=== PATIENT | female | born 1945 | race Caucasian/White ===

== ENCOUNTER 2016-08-13 07:13 | Day surgery (SDC) | payer MEDICARE, MEDICAID ==
[2016-08-13] MEDS ORDERED: Povidone-Iodine 10% Oint 28.4 GM Tube ONE (07:19)
[2016-08-13] MEDS ORDERED: EPINEPHrine 1:1000 1 MG/ML SDV ONE (07:19)
[2016-08-13] MEDS ORDERED: Bupivacaine 0.5%/EPINEPHrine 1:200,000 50 ML MDV ONE (07:20)
[2016-08-13] MEDS ORDERED: Povidone-Iodine 10% Soln 118.25 ML Bottle ONE (07:21)
[2016-08-13] MEDS ORDERED: Lactated Ringers 1,000 ML IV SCH (08:00)
[2016-08-13] MEDS ORDERED: fentaNYL 250 MCG/5 ML SDV ONE (08:31)
[2016-08-13] MEDS ORDERED: Succinylcholine/Normal Saline 200 MG/10 ML Syringe ONE (08:31)
[2016-08-13] MEDS ORDERED: Rocuronium 50 MG/5 ML Vial ONE (08:31)
[2016-08-13] MEDS ORDERED: Propofol 200 MG/20 ML SDV ONE (08:31)
[2016-08-13] MEDS ORDERED: Dexamethasone 4 MG/ML SDV ONE (08:31)
[2016-08-13] MEDS ORDERED: Neostigmine Methylsulfate 1 MG/ML 5 ML Syringe ONE (08:31)
[2016-08-13] MEDS ORDERED: Ondansetron 4 MG/2 ML SDV ONE (08:31)
[2016-08-13] MEDS ORDERED: Bupivacaine 0.5% 30 ML SDV ONE (08:33)
[2016-08-13] MEDS ORDERED: Ketorolac 60 MG/2 ML SDV ONE (08:46)
[2016-08-13] MEDS ORDERED: ceFAZolin 2 GM in Sodium Chloride 0.9% 50 ML IV ONE (09:30)
[2016-08-13] MEDS ORDERED: ceFAZolin 2 GM in Premix Bag 1 BAG IV ONE (09:30)
[2016-08-13] MEDS ORDERED: ePHEDrine 50 MG/ML SDV ONE (11:20)
[2016-08-13 14:26] VITALS: BP 109/71
--- NOTE | 2016-08-13 18:15 | OR ---
DATE OF PROCEDURE: 08/13/2016 PREOPERATIVE DIAGNOSIS: Left rotator cuff tear. POSTOPERATIVE DIAGNOSIS: Left rotator cuff tear. PROCEDURE: Left shoulder arthroscopy with subacromial decompression and mini open rotator cuff repair. ANESTHESIA: Laryngeal mask airway, general endotracheal intubation. FLUID: Lactated Ringer solution. ESTIMATED BLOOD LOSS: Less than 25 mils. COMPLICATIONS: None. SPECIMEN: None. DISCHARGE DISPOSITION: Stable to PACU. INSTRUMENTATION: [place]. HISTORY AND INDICATIONS FOR THE PROCEDURE: The patient is seen preoperatively two weeks ago in the clinic. She had had a recent history of feeling a snap in her shoulder. Preoperative imaging confirmed the above-mentioned diagnosis. Risks and benefits of the procedure were explained to the patient. Informed consent was obtained. DETAILS OF PROCEDURE: The patient was seen preoperatively by myself and the anesthesia staff in the preop holding area, where the operative site was marked. She was brought to the operative suite by the Anesthesia Staff where an interscalene block was administered as well as general endotracheal intubation. She was placed into a beach chair position. All extremities found to be well padded. Left upper extremity was then prepped and draped in a sterile manner. Time-out was called identifying the correct patient, correct site, correct procedure, correct site, and antibiotics had been with appropriate period of time. The posterior portal was then made and the joint was explored. Biceps tendon was intact as well as the middle glenohumeral ligament. In subscapularis tendon, the articular surface did not have a great deal chondromalacia. I then entered the subacromial space and then used a shaver through the lateral portal to clear any bursa and then used a cautery burner to remove any soft tissue on acromial process. I then used a gelacio and removed the inferior aspect of the acromial hook and then removed my instruments. I then closed the portals with 3-0 Vicryl. I then re-prepped with Betadine solution and then made an incision at the anterior corner of the acromion and identified the raphe between the anterior and medial portion. I then divided the deltoid up to its insertion on the acromion and was left remaining incision less than 4 cm to the acromion. I then identified the rotator cuff tear. There was a longitudinal tear. I did use a #2 FiberWire to do marginal convergence stitch after this had been accomplished. I then placed my medial row and then ran medial row of anchors and then reamed the FiberTape through the rotator cuff posteriorly and anteriorly. I then made my lateral row of anchors and my anchors were set in place with the FiberWire as well as the FiberTape. I then irrigated copiously with saline and then closed the deltoid fascia with 2-0 Vicryl and then closed the subcuticular tissues with 2-0 Vicryl and 2-0 Monocryl, followed by Dermabond followed by a Betadine soaked Adaptic, followed by sterile dressing. The patient was then placed into abduction pillow, led to awaken from general anesthesia, and taken to the PACU in stable condition. Stanley Kim DO /[id number]
== END 2016-08-13 15:14 | disposition home or self-care (01) ==
LOC: JP.SDS 07:13
PROVIDERS: ATTEND Orthopaedic Surgery
DX: M75.102 Unspecified rotator cuff tear or rupture of left shoulder, not specified as traumatic (principal); I10 Essential (primary) hypertension; K21.9 Gastro-esophageal reflux disease without esophagitis; G47.33 Obstructive sleep apnea (adult) (pediatric); E78.00 Pure hypercholesterolemia, unspecified; Z79.82 Long term (current) use of aspirin; Z79.899 Other long term (current) drug therapy; Z98.890 Other specified postprocedural states; Z91.040 Latex allergy status; Z91.018 Allergy to other foods; F32.9 Major depressive disorder, single episode, unspecified; G45.9 Transient cerebral ischemic attack, unspecified
CPT/HCPCS: 23412; 29822; C1713; J0171; J0690; J1100; J2405; J2704; J3010; J7050; J7120; 23410; A9270-GY; J1885

== ENCOUNTER 2016-12-26 11:37 | Emergency (ER) | payer MEDICARE, MEDICAID ==
[2016-12-26 12:09] VITALS: BP 117/74
--- NOTE | 2016-12-26 12:43 | EDM.PDOC ---
ED HPI GENERAL MEDICAL PROBLEM - General Chief Complaint: Respiratory Problem Stated Complaint: WEAK/NAUSEA Time Seen by Provider: 12/26/16 12:20 Source of Information: Reports: Patient History Limitations: Reports: No Limitations - History of Present Illness INITIAL COMMENTS - FREE TEXT/NARRATIVE: 71-year-old female with a cough and cold symptoms for the last 48 hours. She's developed a headache as well, no fever or chills, no shortness of breath but the cough is worsening. She just feels awful, malaise, generalized body aches but no nausea or vomiting, denies chest pain, denies sputum production. Her nose is running in her throat is scratchy Onset: Gradual Severity: Mild (Over the past 48 hours) Associated Symptoms: Reports: Cough, Headaches, Malaise. Denies: Chest Pain, Fever/Chills, Loss of Appetite, Nausea/Vomiting, Shortness of Breath - Related Data Allergies Allergy/AdvReac Type Severity Reaction Status Date / Time tomato [Tomato] Allergy Mild Rash Verified 08/13/16 07:35 latex Allergy Cannot Verified 08/13/16 07:35 Remember Home Meds: Home Meds Cyanocobalamin (Vitamin B-12) [Vitamin B-12] 1,000 mcg PO DAILY 03/05/13 [ History] Metoprolol Tartrate [Lopressor] 25 mg PO BID 03/05/13 [History] Multivitamin [Multi-Vitamin Daily] 1 each PO DAILY 03/05/13 [History] atorvaSTATin [Lipitor] 20 mg PO BEDTIME 03/05/13 [History] Omeprazole [Prilosec] 20 mg PO BEDTIME 02/21/14 [History] Aspirin [Ecotrin] 1 tab PO DAILY 10/21/16 [History] Past Medical History HEENT History: Reports: Cataract, Impaired Vision Cardiovascular History: Reports: Afib, Arrhythmia, High Cholesterol, Hypertension Respiratory History: Reports: Sleep Apnea Gastrointestinal History: Reports: GERD Genitourinary History: Reports: None JAVA SOFTWARE History: Reports: Dysfunctional Uterine Bleeding, Musculoskeletal History: Reports: Arthritis, Back Pain, Chronic, Neck Pain, Chronic Other Musculoskeletal History: - Psychiatric History: Reports: Depression Other Dermatologic History: froze mole off right upper cheek- - Infectious Disease History Infectious Disease History: Reports: Measles - Past Surgical History Cardiovascular Surgical History: Reports: Other (See Below) Other Cardiovascular Surgeries/Procedures: angiogram GI Surgical History: Reports: Colonoscopy Female Surgical History: Reports: Hysterectomy, Tubal Ligation Other Musculoskeletal Surgeries/Procedures:: right ankle pins/screws Dermatological Surgical History: Reports: None Social & Family History - Tobacco Use Smoking Status *Q: Never Smoker Second Hand Smoke Exposure: No - Caffeine Use Caffeine Use: Reports: Coffee - Alcohol Use Days Per Week of Alcohol Use: 0 - Recreational Drug Use Recreational Drug Use: No ED ROS GENERAL - Review of Systems Review Of Systems: See Below Constitutional: Reports: Malaise. Denies: Fever, Chills HEENT: Reports: Rhinitis, Throat Pain Respiratory: Reports: Cough. Denies: Shortness of Breath, Sputum Cardiovascular: Denies: Chest Pain GI/Abdominal: Denies: Abdominal Pain, Nausea, Vomiting Skin: Reports: No Symptoms Neurological: Reports: Headache Psychiatric: Reports: No Symptoms ED EXAM, GENERAL - Physical Exam Exam: See Below Free Text/Narrative:: O2 saturations 95% on room air, respiratory rate normal, blood pressure normal, patient is afebrile Exam Limited By: No Limitations General Appearance: Alert, No Apparent Distress Throat/Mouth: Normal Inspection Respiratory/Chest: No Respiratory Distress, Wheezing (A few scattered expiratory wheezes are heard, and a few rales with her cough but overall good air movement) Cardiovascular: Regular Rate, Rhythm Extremities: Normal Inspection. No: Pedal Edema Neurological: Alert, Oriented Psychiatric: Normal Affect, Normal Mood Skin Exam: Warm, Dry Course - Vital Signs Last Recorded V/S: Last Vital Signs Temp 97.5 F 12/26/16 12:06 Pulse 73 12/26/16 12:06 Resp 24 H 12/26/16 12:06 BP 117/74 12/26/16 12:06 Pulse Ox 94 L 12/26/16 12:06 - Re-Assessments/Exams Free Text/Narrative Re-Assessment/Exam: 12/26/16 12:47 Patient did have some fairly significant prolonged coughing spells while I was visiting with her. She'll be treated with benzonatate Perles for cough suppression as well as 40 mg of prednisone daily for up to 5 days. I explained to her this is viral and will have to run its course but we can help her with symptoms. If she worsens she can return any time, or consider recheck in 4-6 days if not improving satisfactorily. Departure - Departure Time of Disposition: 13:11 Disposition: Home, Self-Care 01 Condition: Good Clinical Impression: Viral URI with cough - Discharge Information Instructions: Acute Bronchitis Referrals: Jhonatan Chandra MD [Primary Care Provider] - Forms: ED Department Discharge Care Plan Goals: Use cough medicine as prescribed, and take 4 pills of prednisone with your first meal daily for the next 2-5 days. You may stop the prednisone when you are feeling improved. Return anytime if worsening despite the medication.
== END 2016-12-26 13:11 | disposition home or self-care (01) ==
LOC: JP.ED 11:37
DX: J06.9 Acute upper respiratory infection, unspecified (principal); I48.91 Unspecified atrial fibrillation; E78.00 Pure hypercholesterolemia, unspecified; I10 Essential (primary) hypertension; K21.9 Gastro-esophageal reflux disease without esophagitis; Z90.710 Acquired absence of both cervix and uterus; Z91.040 Latex allergy status; Z79.899 Other long term (current) drug therapy; Z98.51 Tubal ligation status
CPT/HCPCS: 99282; 99283

== ENCOUNTER 2017-06-09 19:18 | Emergency (ER) | payer MEDICARE, MEDICAID ==
[2017-06-09] MEDS ORDERED: Diltiazem 25 MG/5 ML SDV IVPUSH ONE (19:23)
--- NOTE | 2017-06-09 19:32 | EDM.PDOC ---
ED HPI GENERAL MEDICAL PROBLEM - General Chief Complaint: Chest Pain Stated Complaint: HEART ISSUES Time Seen by Provider: 06/09/17 19:20 Source of Information: Reports: Patient History Limitations: Reports: No Limitations - History of Present Illness INITIAL COMMENTS - FREE TEXT/NARRATIVE: 71-year-old female who has a problem with chronic recurring atrial fibrillation many times develop symptoms but it resolved spontaneously if she just relaxes. Tonight she developed sudden atrial fibrillation around an hour and a half ago, it was bothering her more than usual and not going away so she came in. She has no shortness of breath but she has pressure in her upper chest into her jaw which she always gets when she gets atrial fibrillation without control. Her rate is as high as 160. Her legs also feel weak. No fever, denies dyspnea. Onset: Sudden (An hour and a half ago) Severity: Moderate Associated Symptoms: Reports: Chest Pain, Other (Neck pain, arm pain and leg weakness) Chest Pain Score (Numeric/FACES): 8 - Related Data Allergies Allergy/AdvReac Type Severity Reaction Status Date / Time tomato [Tomato] Allergy Mild Rash Verified 06/09/17 19:24 latex Allergy Cannot Verified 06/09/17 19:24 Remember Home Meds: Home Meds Cyanocobalamin (Vitamin B-12) [Vitamin B-12] 1,000 mcg PO DAILY 03/05/13 [ History] Metoprolol Tartrate [Lopressor] 25 mg PO BID 03/05/13 [History] Multivitamin [Multi-Vitamin Daily] 1 each PO DAILY 03/05/13 [History] atorvaSTATin [Lipitor] 20 mg PO BEDTIME 03/05/13 [History] Omeprazole [Prilosec] 20 mg PO BEDTIME 02/21/14 [History] Aspirin [Ecotrin] 1 tab PO DAILY 10/21/16 [History] Past Medical History HEENT History: Reports: Cataract, Impaired Vision Cardiovascular History: Reports: Afib, Arrhythmia, High Cholesterol, Hypertension Respiratory History: Reports: Sleep Apnea Gastrointestinal History: Reports: GERD Genitourinary History: Reports: None [employer]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: Dysfunctional Uterine Bleeding, Musculoskeletal History: Reports: Arthritis, Back Pain, Chronic, Neck Pain, Chronic Other Musculoskeletal History: - Psychiatric History: Reports: Depression Other Dermatologic History: froze mole off right upper cheek- - Infectious Disease History Infectious Disease History: Reports: Measles - Past Surgical History Cardiovascular Surgical History: Reports: Other (See Below) Other Cardiovascular Surgeries/Procedures: angiogram GI Surgical History: Reports: Colonoscopy Female Surgical History: Reports: Hysterectomy, Tubal Ligation Other Musculoskeletal Surgeries/Procedures:: right ankle pins/screws Dermatological Surgical History: Reports: None Social & Family History - Tobacco Use Smoking Status *Q: Never Smoker Second Hand Smoke Exposure: No - Caffeine Use Caffeine Use: Reports: Coffee - Alcohol Use Days Per Week of Alcohol Use: 0 - Recreational Drug Use Recreational Drug Use: No ED ROS GENERAL - Review of Systems Review Of Systems: See Below Constitutional: Reports: Malaise. Denies: Fever, Chills HEENT: Reports: Throat Pain Respiratory: Denies: Shortness of Breath Cardiovascular: Reports: Chest Pain, Palpitations GI/Abdominal: Denies: Abdominal Pain, Nausea, Vomiting : Reports: No Symptoms Neurological: Reports: No Symptoms Psychiatric: Reports: No Symptoms ED EXAM, GENERAL - Physical Exam Exam: See Below Exam Limited By: No Limitations General Appearance: Alert, No Apparent Distress, Anxious Eye Exam: Bilateral Eye: Normal Inspection Head: Atraumatic Respiratory/Chest: No Respiratory Distress, Lungs Clear Cardiovascular: Tachycardia, Irregularly Irregular GI/Abdominal: Normal Bowel Sounds, Soft Extremities: Normal Inspection. No: Pedal Edema Neurological: Alert, Oriented Course - Vital Signs Last Recorded V/S: Last Vital Signs Temp 97.5 F 06/09/17 19:47 Pulse 114 H 06/09/17 22:51 Resp 17 06/09/17 21:31 BP 98/66 06/09/17 22:51 Pulse Ox 96 06/09/17 22:51 - Orders/Labs/Meds Orders: Active Orders 24 hr Category Date Time Status EKG Documentation Completion [RC] ASDIRECTED Care 06/09/17 19:24 Active Saline Lock Insert [OM.PC] Routine Oth 06/09/17 19:42 Ordered EKG 12 Lead [EK] Routine Ther 06/09/17 19:23 Ordered Labs: Laboratory Tests 06/09/17 06/09/17 Range/Units 19:34 19:34 WBC 12.1 H (4.5-11.0) K/uL RBC 4.61 (3.30-5.50) M/uL Hgb 13.2 (12.0-15.0) g/dL Hct 41.2 (36.0-48.0) % MCV 89 (80-98) fL MCH 29 (27-31) pg MCHC 32 (32-36) % Plt Count 178 (150-400) K/uL Neut % (Auto) 63 (36-66) % Lymph % (Auto) 28 (24-44) % [place] % (Auto) 8 H (2-6) % Eos % (Auto) 1 L (2-4) % Baso % (Auto) 0 (0-1) % Sodium 145 (140-148) mmol/L Potassium 3.7 (3.6-5.2) mmol/L Chloride 106 (100-108) mmol/L Carbon Dioxide 28 (21-32) mmol/L Anion Gap 11.1 (5.0-14.0) mmol/L BUN 16 (7-18) mg/dL Creatinine 1.0 (0.6-1.0) mg/dL Est Cr Clr Drug Dosing TNP Estimated GFR (MDRD) 55 L (>60) Glucose 133 H (74-106) mg/dL Calcium 8.3 L (8.5-10.1) mg/dL Total Bilirubin 0.3 (0.2-1.0) mg/dL AST 24 (15-37) U/L ALT 32 (12-78) U/L Alkaline Phosphatase 75 (46-116) U/L Troponin I < 0.017 (0.000-0.056) ng/mL Total Protein 6.8 (6.4-8.2) g/dL Albumin 3.5 (3.4-5.0) g/dL Globulin 3.3 (2.3-3.5) g/dL Albumin/Globulin Ratio 1.1 L (1.2-2.2) Meds: Medications Discontinued Medications Generic Name Dose Route Start Last Admin Trade Name Freq PRN Reason Stop Dose Admin Diltiazem HCl 20 mg 06/09/17 19:23 06/09/17 19:29 Diltiazem IVPUSH 06/09/17 19:24 20 mg ONETIME ONE Administration Metoprolol Tartrate 25 mg 06/09/17 19:47 06/09/17 19:57 Lopressor PO 06/09/17 19:48 25 mg ONETIME ONE Administration Propofol Confirm 06/09/17 22:26 Diprivan 20 Ml Administered 06/09/17 22:27 Dose 200 mg .ROUTE .STK-MED ONE Sodium Chloride 10 ml 06/09/17 19:42 06/09/17 19:48 Saline Flush FLUSH 10 ml ASDIRECTED PRN Administration Keep Vein Open - Re-Assessments/Exams Free Text/Narrative Re-Assessment/Exam: 06/09/17 19:31 An IV was started and we will be controlled with Cardizem IV starting at 20 mg. CBC, CMP, troponin were obtained, and if she does not convert in the next couple hours and if labs are reassuring electrical cardioversion will be attempted. 06/09/17 20:09 White count is 12,000, troponin 0, electrolytes normal very reassuring. The Cardizem had a great rate control affect slowing her rate into the 70s and 80s, and there were even some small bursts of normal sinus rhythm but she is still in atrial fibrillation at this time. 06/09/17 22:40 Patient continued to display atrial fibrillation although the rate was better controlled she would not convert. She was then sedated with propofol, and elective synchronized cardioversion was attempted. A 200 J effort as well as two 300 J efforts were done with only minimal response initially and then reconversion to atrial fibrillation and flutter. I believe this patient needs admission for rate control and discussion of whether medication changes are necessary. We have no inpatient beds but fortunately the hospitalist service at [facility] was kind enough to accept the patient and she can get a cardiology consultation up there as well. Departure - Departure Time of Disposition: 23:17 Disposition: DC/Tfer to Other Reason for Transfer *Q: Other Condition: Fair Clinical Impression: Atrial fibrillation with rapid ventricular response Instructions: Atrial Fibrillation, [id number] Referrals: PCP,None [Primary Care Provider] - Forms: ED Department Discharge Care Plan Goals: Patient is to be transferred to [facility] for inpatient monitoring of atrial fibrillation along with cardiology consultation. - My Orders Last 24 Hours: My Active Orders 06/09/17 19:23 EKG 12 Lead [EK] Routine 06/09/17 19:24 EKG Documentation Completion [RC] ASDIRECTED 06/09/17 19:42 Saline Lock Insert [OM.PC] Routine - Assessment/Plan Last 24 Hours: My Active Orders 06/09/17 19:23 EKG 12 Lead [EK] Routine 06/09/17 19:24 EKG Documentation Completion [RC] ASDIRECTED 06/09/17 19:42 Saline Lock Insert [OM.PC] Routine
[2017-06-09] MEDS ORDERED: Sodium Chloride 0.9% 10 ML Syringe FLUSH PRN (19:42)
[2017-06-09] MEDS ORDERED: Metoprolol Tartrate 25 MG Tab PO ONE (19:47)
[2017-06-09] MEDS ORDERED: Propofol 200 MG/20 ML SDV ONE (22:26)
[2017-06-09 22:51] VITALS: BP 98/66
== END 2017-06-09 23:17 | disposition other institution (70) ==
LOC: JP.ED 19:18
DX: I48.91 Unspecified atrial fibrillation (principal); E78.00 Pure hypercholesterolemia, unspecified; I10 Essential (primary) hypertension; K21.9 Gastro-esophageal reflux disease without esophagitis; Z91.018 Allergy to other foods; Z91.040 Latex allergy status; Z79.899 Other long term (current) drug therapy
CPT/HCPCS: 36415; 80053; 84484; 85025; 92960; 93005; 96374; 99285; A9270; J2704; J3490; J7050

== ENCOUNTER 2017-07-16 06:35 | Day surgery (SDC) | payer MEDICARE, MEDICAID ==
[2017-07-16] MEDS ORDERED: Lactated Ringers 1,000 ML IV SCH (07:00)
[2017-07-16] MEDS ORDERED: Propofol 200 MG/20 ML SDV ONE (08:12)
[2017-07-16] MEDS ORDERED: fentaNYL 100 MCG/2 ML SDV ONE (08:12)
[2017-07-16] MEDS ORDERED: Midazolam 1 MG/ML 2 ML SDV ONE (08:13)
[2017-07-16 10:11] VITALS: BP 123/75
--- NOTE | 2017-07-16 14:35 | OR ---
DATE OF PROCEDURE: 07/16/2017 PREOPERATIVE DIAGNOSIS: Blood in stool. POSTOPERATIVE DIAGNOSES: 1. Blood in stool, etiology unknown. 2. Antral inflammation consistent with gastritis. 3. Diverticulosis. 4. Small rectal polyp. PROCEDURE: Esophagogastroduodenoscopy with antral biopsies for CLOtest and for pathology to look for Helicobacter pylori. Colonoscopy to the cecum with biopsy, resection of rectal polyp. SURGEON: Rajeev Stark MD. ANESTHESIA: IV anesthesia with monitored anesthesia care. INDICATION: This 71-year-old white female is referred for upper and lower endoscopy because of blood in her stool. I counseled her before the procedure including risks and alternatives, and she gave her informed consent to proceed. She said she has had both upper and lower endoscopies in the past, both about 8 or 9 years ago. DESCRIPTION OF PROCEDURE: The patient was placed in the left lateral decubitus position. IV anesthesia was administered by the Anesthesia Service. A time-out was held. The flexible video Olympus upper endoscope was passed through her mouth, down her esophagus, and into her stomach. The scope was easily passed through the pylorus into the duodenal region and its third portion. The scope was then slowly withdrawn, examining the mucosa throughout. The duodenal mucosa appeared unremarkable. The scope was brought up through the pylorus. There was some fairly intense erythema in the antrum consistent with gastritis. The scope was retroflexed. The proximal stomach appeared unremarkable. The scope was straightened. We obtained antral biopsies for CLOtest and for pathology to look for Helicobacter pylori. The scope was then brought up through the GE junction which appeared unremarkable and then up through the unremarkable appearing esophagus and was removed. We saw no evidence of any old or new blood nor anything that we would expect to bleed in the upper gastrointestinal area. Next, a rectal exam was performed, which was unremarkable. The flexible video Olympus colonoscope was introduced through her anus, up her rectum, and out her colon all way to the cecum. We saw a few left-sided diverticula. There was no bleeding or inflammation associated with any of them. Once the cecum was reached, the scope was slowly withdrawn, examining the mucosa throughout. No additional mucosal abnormalities were noted until we reached the rectum. Here, we saw a small polyp, which was removed with a couple of bites of biopsy forceps. The scope was retroflexed with the distal rectum appearing unremarkable. The scope was straightened and removed. She tolerated the procedure well. Rajeev Stark MD /[id number]
== END 2017-07-16 10:30 | disposition home or self-care (01) ==
LOC: JP.SDS 06:35
PROVIDERS: ATTEND Surgery
DX: K92.1 Melena (principal); K57.30 Diverticulosis of large intestine without perforation or abscess without bleeding; K63.5 Polyp of colon; K21.9 Gastro-esophageal reflux disease without esophagitis; Z91.040 Latex allergy status; Z91.018 Allergy to other foods
CPT/HCPCS: 43239; 45380; 87081; 88305; J2250; J2704; J3010; J7120

== ENCOUNTER 2017-08-14 07:10 | Day surgery (SDC) | payer MEDICARE, MEDICAID ==
[2017-08-14] MEDS ORDERED: Sodium Chloride 0.9% 10 ML Syringe FLUSH PRN (08:00)
[2017-08-14 09:16] VITALS: BP 113/54
--- NOTE | 2017-08-14 09:59 | OR ---
DATE OF PROCEDURE: 08/14/2017 POSTOPERATIVE CARE: Postoperative care will be provided mainly at the [address] [place] [address] [facility] in conjunction with [facility]. PREOPERATIVE DIAGNOSES: 1. Cataract, left eye. 2. Adherent posterior subcapsular cataract. PREOPERATIVE DIAGNOSIS: Cataract, left eye. PROCEDURE: 1. Cataract extraction, Phacoemulsification with intraocular lens placement, left eye. 2. Polishing of the posterior capsule with a Cholo Squeegee. ANESTHESIA: Topical and intracameral. ESTIMATED BLOOD LOSS: Minimal. COMPLICATIONS: None. PATHOLOGY SPECIMENS: None. SURGICAL FINDINGS: None. INDICATION FOR PROCEDURE: The patient is a 71-year-old female with history of a visually significant cataract in the left eye, which interfered with activities of daily living. This consisted of a nuclear sclerosis cataract. Following careful discussion of the risks, benefits and alternatives to cataract extraction with intraocular lens placement including blindness and , the patient elected to proceed, and informed, written consent was obtained prior to the procedure. DESCRIPTION OF THE PROCEDURE: The patient was previously identified, and a helio placed above the left eye. All sources, including the patient, indicated that the left eye was the correct eye. The patient was subsequently taken to the operating room where standard monitors were applied. The patient was then prepped and draped in the usual sterile fashion for ophthalmic surgery. Attention was first directed at the 12 o'clock position where a paracentesis port was fashioned. Shugar solution followed by Viscoat was instilled into the eye. Attention was then directed to the 8:30 position where a triplanar incision was made in a near-clear manner using a keratome. A continuous capsulorrhexis was then made using a combination of the cystotome and Utrata forceps. Hydrodissection was achieved using a balanced salt solution, and the lens rotated nicely. Phacoemulsification was then done using a modified [id number] technique without complication. Phaco time was 9.19 CDE. The remaining cortex was removed using the irrigation/aspiration handpiece. After removal of the cortex with irrigation and aspiration, the posterior capsule was gently polished using a Cholo Squeegee. Provisc was then instilled into the eye. A Technis lens, model [id number], at 19.5 diopters was then placed in the capsular bag using an [place] injector. The remaining viscoelastic was removed using the irrigation/aspiration forceps. All wounds were then checked and found to be watertight. The lid speculum and drapes were removed. Maxitrol ointment was placed in the patient's left eye, and the eye was shielded. The patient tolerated the procedure well. The patient was instructed to follow up tomorrow. All needle and sponge counts were correct at the end of the procedure. Mimi Brush MD /[id number]
== END 2017-08-14 09:55 | disposition home or self-care (01) ==
LOC: JP.SDS 07:10
PROVIDERS: ATTEND Ophthalmology
DX: H25.12 Age-related nuclear cataract, left eye (principal); K21.9 Gastro-esophageal reflux disease without esophagitis; Z91.040 Latex allergy status
CPT/HCPCS: 66984; J7050

== ENCOUNTER 2019-01-19 17:13 | Observation (INO) | payer MEDICARE, MEDICAID ==
[2019-01-19] MEDS ORDERED: Sodium Chloride 0.9% 10 ML Syringe FLUSH PRN (17:40)
[2019-01-19] MEDS ORDERED: Acetaminophen 325 MG Tab PO PRN (17:40)
[2019-01-19] MEDS ORDERED: Albuterol 0.083% 2.5 MG/3 ML Neb Soln NEB PRN (17:40)
[2019-01-19] MEDS ORDERED: Ondansetron 4 MG/2 ML SDV IV PRN (17:40)
[2019-01-19] MEDS ORDERED: Polyethylene Glycol 3350 Powder 17 GM Packet PO PRN (17:40)
[2019-01-19] MEDS ORDERED: oxyCODONE 5 MG Tab PO PRN (17:40)
--- NOTE | 2019-01-19 18:44 | PCM.HP.2 ---
H&P History of Present Illness - General Date of Service: 01/19/19 Admit Problem/Dx: Admission Diagnosis/Problem Admission Diagnosis/Problem Hypoxia Source of Information: Patient, Provider, RN Notes Reviewed History Limitations: Reports: No Limitations - History of Present Illness Initial Comments - Free Text/Narative: Ms. Kimball is a 73-year-old woman who was admitted as a direct admission from the clinic for further evaluation and management of hypoxia. She has a known history of COPD and reports that she was noted to be hypoxic with exertion on her last visit pulmonary medicine in August of this year. She does use some inhalers on a daily basis. She experienced a coughing episode last night and developed immediate onset of pain in her right lateral posterior chest wall. Pain is fairly severe and hurts with breathing. Because of the pain she was seen and evaluated in the clinic. On initial assessment and reassessment was found to be hypoxic on room air with saturations in the upper 80s. Vital signs were otherwise stable and she was afebrile. CT scan of the chest with PE protocol was obtained and shows no evidence of pulmonary emboli, significant infiltrate, or congestive heart failure. She was found to have bilateral atelectasis at the bases. - Related Data Allergies/Adverse Reactions: Allergies Allergy/AdvReac Type Severity Reaction Status Date / Time tomato [Tomato] Allergy Mild Rash Verified 10/16/17 06:59 latex Allergy Rash Verified 10/16/17 06:59 Home Medications: Home Meds Cyanocobalamin (Vitamin B-12) [Vitamin B-12] 1,000 mcg PO DAILY 03/05/13 [ History] Metoprolol Tartrate [Lopressor] 12.5 mg PO BID 03/05/13 [History] Multivitamin [Multi-Vitamin Daily] 1 tab PO DAILY 03/05/13 [History] atorvaSTATin [Lipitor] 20 mg PO DAILY 03/05/13 [History] Omeprazole [Prilosec] 20 mg PO ACBREAKFAST 02/21/14 [History] Aspirin [Children's Aspirin] 81 mg PO DAILY 07/14/17 [History] Flecainide [Tambocor] 100 mg PO BID 07/14/17 [History] Moxifloxacin [Vigamox 0.5% Ophth Soln] 1 drop EYELF QID 08/07/17 [History] prednisoLONE acetate [Pred Forte 1% Ophth Susp] 1 drop EYELF QID 08/07/17 [ History] Albuterol [Ventolin HFA] 01/19/19 [History] Cholecalciferol (Vitamin D3) [Vitamin D3] 1,000 unit PO DAILY 01/19/19 [History] Citalopram [Citalopram HBr] 20 mg PO DAILY 01/19/19 [History] Temazepam [Restoril] 7.5 mg PO BEDTIME 01/19/19 [History] Past Medical History HEENT History: Reports: Cataract, Impaired Vision Cardiovascular History: Reports: Afib, Arrhythmia, High Cholesterol, Hypertension Respiratory History: Reports: Sleep Apnea Gastrointestinal History: Reports: Colon Polyp, GERD, GI Bleed Genitourinary History: Reports: None SPECIAL EFFECTS ARTIST History: Reports: Dysfunctional Uterine Bleeding, Musculoskeletal History: Reports: Back Pain, Chronic, Neck Pain, Chronic, Osteoarthritis Other Musculoskeletal History: - Neurological History: Reports: Other (See Below) Other 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19 Psychiatric History: Reports: Depression Hematologic History: Reports: B12 Deficiency Dermatologic History: Reports: Other (See Below) Other Dermatologic History: froze mole off right upper cheek- - Infectious Disease History Infectious Disease History: Reports: Chicken Pox, Measles - Past Surgical History HEENT Surgical History: Reports: Cataract Surgery Cardiovascular Surgical History: Reports: Other (See Below) Other Cardiovascular Surgeries/Procedures: angiogram Respiratory Surgical History: Reports: None GI Surgical History: Reports: Colonoscopy, EGD Female Surgical History: Reports: Hysterectomy, Salpingo-Oophorectomy, Tubal Ligation Neurological Surgical History: Reports: None Musculoskeletal Surgical History: Reports: Shoulder Surgery Other Musculoskeletal Surgeries/Procedures:: right ankle pins/screws Dermatological Surgical History: Reports: None Social & Family History - Family History Family Medical History: Noncontributory - Tobacco Use Smoking Status *Q: Former Smoker Used Tobacco, but Quit: Yes Month/Year Tobacco Last Used: 1964 - Caffeine Use Caffeine Use: Reports: Coffee, Soda - Recreational Drug Use Recreational Drug Use: No H&P Review of Systems - Review of Systems: Review Of Systems: See Below General: Reports: No Symptoms HEENT: Reports: No Symptoms Pulmonary: Reports: Shortness of Breath, Other (Chest wall pain). Denies: Wheezing, Pleuritic Chest Pain, Cough, Sputum, Hemoptysis Cardiovascular: Reports: Dyspnea on Exertion. Denies: Chest Pain, Palpitations , Orthopnea, PND, Edema, Lightheadedness Gastrointestinal: Reports: No Symptoms Genitourinary: Reports: No Symptoms Musculoskeletal: Reports: No Symptoms Skin: Reports: No Symptoms Psychiatric: Reports: No Symptoms Neurological: Reports: No Symptoms Hematologic/Lymphatic: Reports: No Symptoms Immunologic: Reports: No Symptoms Exam - Exam Exam: See Below - Vital Signs Vital Signs: Last Vital Signs Temp 95.7 F 01/19/19 17:25 Pulse 60 01/19/19 17:25 Resp 16 01/19/19 17:25 BP 147/50 H 01/19/19 17:25 Pulse Ox 95 01/19/19 17:25 Weight: 180 lb - Exam Quality Assessment: Supplemental Oxygen, DVT Prophylaxis General: Alert, Oriented, Cooperative, Mild Distress HEENT: Conjunctiva Clear, Hearing Intact, Mucosa Moist & [place], Normal Nasal Septum, Posterior Pharynx Clear, Pupils Equal Neck: Supple, Trachea Midline, +2 Carotid Pulse wo Bruit Lungs: Clear to Auscultation, Normal Respiratory Effort, Decreased Breath Sounds. No: Rales, Rhonchi, Wheezing Cardiovascular: Regular Rate, Regular Rhythm, Normal S1, Normal S2. No: Systolic Murmur, Diastolic Murmur GI/Abdominal Exam: Soft, Non-Tender, No Organomegaly, No Distention Back Exam: Normal Inspection, Full Range of Motion Extremities: Non-Tender, No Pedal Edema Skin: Warm, Dry, Intact Neurological: Cranial Nerves Intact, Strength Equal Bilateral, Normal Speech, Normal Tone, Sensation Intact. No: Focal Deficit Neuro Extensive - Mental Status: Alert, Oriented x3, Normal Mood/Affect, Normal Cognition, Memory Intact - Patient Data Lab Results Last 24 hrs: Laboratory Results - last 24 hr 01/19/19 01/19/19 Range/Units 18:00 18:00 WBC 10.9 (4.5-11.0) K/uL RBC 4.17 (3.30-5.50) M/uL Hgb 12.2 (12.0-15.0) g/dL Hct 38.7 (36.0-48.0) % MCV 93 (80-98) fL MCH 29 (27-31) pg MCHC 32 (32-36) % Plt Count 192 (150-400) K/uL Neut % (Auto) 69 H (36-66) % Lymph % (Auto) 22 L (24-44) % [place] % (Auto) 7 H (2-6) % Eos % (Auto) 2 (2-4) % Baso % (Auto) 0 (0-1) % Sodium 141 (140-148) mmol/L Potassium 4.1 (3.6-5.2) mmol/L Chloride 105 (100-108) mmol/L Carbon Dioxide 30 (21-32) mmol/L Anion Gap 6.5 (5.0-14.0) mmol/L BUN 13 (7-18) mg/dL Creatinine 1.0 (0.6-1.0) mg/dL Est Cr Clr Drug Dosing TNP Estimated GFR (MDRD) 55 L (>60) Glucose 86 (74-106) mg/dL Calcium 8.8 (8.5-10.1) mg/dL Total Bilirubin 0.4 (0.2-1.0) mg/dL AST 16 (15-37) U/L ALT 26 (12-78) U/L Alkaline Phosphatase 64 (46-116) U/L Total Protein 7.0 (6.4-8.2) g/dL Albumin 3.4 (3.4-5.0) g/dL Globulin 3.6 H (2.3-3.5) g/dL Albumin/Globulin Ratio 0.9 L (1.2-2.2) Result Diagrams: 01/19/19 18:00 01/19/19 18:00 *Q Meaningful Use (ADM) - VTE Risk Assess *Q Each Risk Factor Represents 1 Point: Abnormal Pulmonary Function (COPD) Total Score 1 Point Risk Factors: 1 Each Risk Factor Represents 2 Points: Age 60 - 74 Years Total Score 2 Point Risk Factors: 2 Each Risk Factor Represents 3 Points: None Total Score 3 Point Risk Factors: 0 Each Risk Factor Represents 5 Points: None Total Score 5 Point Risk Factors: 0 Venous Thromboembolism Risk Factor Score *Q: 3 Problem List Initiated/Reviewed/Updated: Yes Orders Last 24hrs: Active Orders 24 hr Category Date Time Status Patient Status [ADT] Routine ADT 01/19/19 17:40 Active Ambulate [RC] QID Care 01/19/19 17:40 Active Height and Weight [RC] DAILY Care 01/19/19 17:40 Active Incentive Spirometry [RT Incentive Spirometry] [] Care 01/19/19 18:29 Active ASDIRECTED Intake and Output [RC] QSHIFT Care 01/19/19 17:40 Active Notify Provider Vital Signs [RC] ASDIRECTED Care 01/19/19 17:40 Active Oxygen Therapy [RC] PRN Care 01/19/19 17:40 Active Pulse Oximetry [RC] CONTINUOUS Care 01/19/19 17:41 Active RT Aerosol Therapy [RC] ASDIRECTED Care 01/19/19 17:42 Active Up to Chair [RC] QID Care 01/19/19 17:40 Active VTE/DVT Education [RC] Per Unit Routine Care 01/19/19 17:40 Active Vital Signs [RC] Q4H Care 01/19/19 17:40 Active Consistent Carbohydrate Diet [DIET] Diet 01/19/19 Dinner Active Acetaminophen [Tylenol] Med 01/19/19 17:40 Active 650 mg PO Q4H PRN Albuterol [Proventil Neb Soln] Med 01/19/19 17:40 Active 2.5 mg NEB Q4H PRN Albuterol/Ipratropium [DuoNeb 3.0-0.5 MG/3 ML] Med 01/19/19 21:00 Active 3 ml NEB QIDRT Enoxaparin [Lovenox] Med 01/19/19 18:45 Active 40 mg SUBCUT DAILY Ondansetron [Zofran] Med 01/19/19 17:40 Active 4 mg IV Q4H PRN Polyethylene Glycol 3350 [MiraLAX] Med 01/19/19 17:40 Active 17 gm PO DAILY PRN Sodium Chloride 0.9% [Saline Flush] Med 01/19/19 17:40 Active 10 ml FLUSH ASDIRECTED PRN oxyCODONE Med 01/19/19 17:40 Active 5 mg PO Q4H PRN Saline Lock Insert [OM.PC] Routine Oth 01/19/19 17:40 Ordered Resuscitation Status Routine Resus Stat 01/19/19 17:40 Ordered Medication Orders Acetaminophen (Tylenol) 650 mg PO Q4H PRN PRN Reason: Pain (Mild 1-3)/fever Albuterol (Proventil Neb Soln) 2.5 mg NEB Q4H PRN PRN Reason: Shortness Of Breath/wheezing Albuterol/Ipratropium (Duoneb 3.0-0.5 Mg/3 Ml) 3 ml NEB QIDRT [place] Enoxaparin Sodium (Lovenox) 40 mg SUBCUT DAILY [place] Ondansetron HCl (Zofran) 4 mg IV Q4H PRN PRN Reason: Nausea/Vomiting Oxycodone HCl (Oxycodone) 5 mg PO Q4H PRN PRN Reason: Pain (moderate 4-6) Polyethylene Glycol (Miralax) 17 gm PO DAILY PRN PRN Reason: Constipation Sodium Chloride (Saline Flush) 10 ml FLUSH ASDIRECTED PRN PRN Reason: Keep Vein Open Assessment/Plan Comment:: ASSESSMENT AND PLAN HYPOXIA-by history she has underlying COPD and in the past has noted to be hypoxic with activity. Current level of hypoxia is likely secondary to her underlying COPD as well as hypoventilation related to muscular chest wall injury. -Supplemental oxygen as needed -Incentive spirometry to encourage deep breathing -Continuous pulse oximeter -Nebulizer therapy with albuterol and DuoNeb's CHEST WALL PAIN-experienced with a coughing episode last night and has persisted since then. No evidence of rib fracture identified on CT scan, likely secondary to soft tissue injury/muscle strain -Pain medication as needed COPD -She may require home oxygen therapy, will reassess in a.m. -Continue outpatient medications MAINTENANCE ISSUES -DVT prophylaxis; Lovenox 40 mg subcutaneous daily -GI prophylaxis; not indicated -Robins catheter; not indicated -Nutrition; 2 g sodium diet -Nicotine dependence; not required CODE STATUS-FULL CODE ADMISSION STATUS-this patient will be admitted to observation status, expect no more than a one night hospital stay for evaluation and management of problems as outlined above. DISPOSITION-anticipate discharge to home tomorrow PRIMARY CARE PROVIDER-Dr. King - Mortality Measure Prognosis:: Good
[2019-01-19] MEDS: Enoxaparin 40 MG/0.4 ML Syringe SUBCUT SCH (19:21)
[2019-01-19] MEDS ORDERED: TEMAZEPAM 7.5 MG PO SCH (21:00)
[2019-01-19] MEDS ORDERED: ATORVASTATIN 20 MG PO SCH (21:00)
[2019-01-19] MEDS ORDERED: ASPIRIN 81 MG PO SCH (21:00)
[2019-01-19] MEDS: FLECAINIDE 100 MG PO SCH (21:37)
[2019-01-19] MEDS: Metoprolol Tartrate 25 MG Tab*PT OWN MED PO SCH (21:38)
[2019-01-19] MEDS: Albuterol/Ipratropium 3.0-0.5 MG/3 ML Neb Soln NEB SCH (21:54)
[2019-01-19] MEDS ORDERED: OMEPRAZOLE 20 MG PO SCH (22:30)
[2019-01-20] MEDS: Albuterol/Ipratropium 3.0-0.5 MG/3 ML Neb Soln NEB SCH ×2 (06:59→10:35)
[2019-01-20] MEDS: Metoprolol Tartrate 25 MG Tab*PT OWN MED PO SCH (08:53)
[2019-01-20 08:54] VITALS: BP 116/53
[2019-01-20] MEDS: FLECAINIDE 100 MG PO SCH (08:55)
[2019-01-20] MEDS: Enoxaparin 40 MG/0.4 ML Syringe SUBCUT SCH (08:56)
[2019-01-20] MEDS ORDERED: CITALOPRAM 20 MG PO SCH (09:00)
[2019-01-20 10:36] VITALS: PULSE 63
--- NOTE | 2019-01-20 10:50 | PCM.DCSUM1 ---
Discharge Summary - Hospital Course Brief History: Ms. Kimball is a 73-year-old woman who was admitted as a direct admission from the clinic to observation status for further evaluation and management of pleuritic pain and hypoxia. - Discharge Data Discharge Date: 01/20/19 Discharge Disposition: Home, Self-Care 01 Condition: Fair - Referral to Home Health Primary Care Physician: Jhonatan Chandra MD - Discharge Diagnosis/Problem(s) (1) Aspiration of food SNOMED Code(s): 80913341 ICD Code: T17.920A - FOOD IN RESP TRACT, PART UNSP CAUSING ASPHYXIATION, INIT Status: Acute Current Visit: Yes (2) Hypoxia SNOMED Code(s): 579891034 ICD Code: R09.02 - HYPOXEMIA Status: Acute Current Visit: No (3) History of atrial fibrillation SNOMED Code(s): 279718526 ICD Code: Z86.79 - PERSONAL HISTORY OF OTHER DISEASES OF THE CIRCULATORY SYSTEM Status: Chronic Current Visit: No (4) COPD (chronic obstructive pulmonary disease) SNOMED Code(s): 87925236 ICD Code: J44.9 - CHRONIC OBSTRUCTIVE PULMONARY DISEASE, UNSPECIFIED Status : Chronic Current Visit: No (5) Lung nodules Status: Chronic Current Visit: No - Patient Summary/Data Hospital Course: Ms. Kimball is a 73-year-old woman who was admitted as a direct admission from the clinic for further evaluation and management of hypoxia. She has a known history of COPD and reports that she was noted to be hypoxic with exertion on her last visit pulmonary medicine in August of this year. She does use some inhalers on a daily basis. She experienced a coughing episode last night associated with eating and developed immediate onset of pain in her right lateral posterior chest wall. Pain is fairly severe and hurts with breathing. Because of the pain she was seen and evaluated in the clinic. On initial assessment and reassessment was found to be hypoxic on room air with saturations in the upper 80s. Vital signs were otherwise stable and she was afebrile. CT scan of the chest with PE protocol was obtained and shows no evidence of pulmonary emboli, significant infiltrate, or congestive heart failure. She was found to have bilateral atelectasis at the bases. On admission she was given supplemental oxygen as needed as well as pain medication. Later that evening after admission she did cough up AP and noted immediate resolution of her pleuritic chest wall pain. Following morning she remained hypoxic on room air and had a documented oxygen saturation of 87% while on room air. She does have known moderate COPD. She will be discharged to home with supplemental oxygen 2 L/m via nasal cannula. Activity will be as tolerated and she will resume her usual diet. Follow-up appointment will be scheduled with her primary care provider within one week. - Patient Instructions Diet: Usual Diet as Tolerated Activity: As Tolerated Other/Special Instructions: Oxygen 2 L/m via nasal cannula. Please schedule follow-up appointment with primary care provider within one week. - Discharge Plan *PRESCRIPTION DRUG MONITORING PROGRAM REVIEWED*: Not Applicable *COPY OF PRESCRIPTION DRUG MONITORING REPORT IN PATIENT MARY: Not Applicable Home Medications: Home Meds Cyanocobalamin (Vitamin B-12) [Vitamin B-12] 1,000 mcg PO DAILY 03/05/13 [ History] Metoprolol Tartrate [Lopressor] 12.5 mg PO BID 03/05/13 [History] Multivitamin [Multi-Vitamin Daily] 1 tab PO DAILY 03/05/13 [History] atorvaSTATin [Lipitor] 20 mg PO DAILY 03/05/13 [History] Omeprazole [Prilosec] 20 mg PO ACBREAKFAST 02/21/14 [History] Aspirin [Children's Aspirin] 81 mg PO DAILY 07/14/17 [History] Flecainide [Tambocor] 100 mg PO BID 07/14/17 [History] Moxifloxacin [Vigamox 0.5% Ophth Soln] 1 drop EYELF QID 08/07/17 [History] prednisoLONE acetate [Pred Forte 1% Ophth Susp] 1 drop EYELF QID 08/07/17 [ History] Albuterol [Ventolin HFA] 01/19/19 [History] Albuterol [Ventolin HFA] 2 puff INH Q4H PRN 01/19/19 [History] Cholecalciferol (Vitamin D3) [Vitamin D3] 1,000 unit PO DAILY 01/19/19 [History] Citalopram [Citalopram HBr] 20 mg PO DAILY 01/19/19 [History] Temazepam [Restoril] 7.5 mg PO BEDTIME 01/19/19 [History] Umeclidinium Brm/Vilanterol Tr [Anoro Ellipta 62.5-25 MCG] 1 puff INH DAILY [History] Oxygen Therapy Mode: Nasal Cannula Oxygen Flow Rate (L/min): 2 - Discharge Summary/Plan Comment DC Time >30 min.: No - Patient Data Vitals - Most Recent: Last Vital Signs Temp 96.7 F 01/20/19 07:14 Pulse 63 01/20/19 10:35 Resp 18 01/20/19 07:14 BP 116/53 L 01/20/19 08:53 Pulse Ox 95 01/20/19 08:22 Weight - Most Recent: 180 lb I&O - Last 24 hours: Intake & Output 01/19/19 01/20/19 01/20/19 22:59 06:59 14:59 Intake Total 500 240 Balance 500 240 Lab Results - Last 24 hrs: Laboratory Results - last 24 hr 01/19/19 01/19/19 Range/Units 18:00 18:00 WBC 10.9 (4.5-11.0) K/uL RBC 4.17 (3.30-5.50) M/uL Hgb 12.2 (12.0-15.0) g/dL Hct 38.7 (36.0-48.0) % MCV 93 (80-98) fL MCH 29 (27-31) pg MCHC 32 (32-36) % Plt Count 192 (150-400) K/uL Neut % (Auto) 69 H (36-66) % Lymph % (Auto) 22 L (24-44) % [place] % (Auto) 7 H (2-6) % Eos % (Auto) 2 (2-4) % Baso % (Auto) 0 (0-1) % Sodium 141 (140-148) mmol/L Potassium 4.1 (3.6-5.2) mmol/L Chloride 105 (100-108) mmol/L Carbon Dioxide 30 (21-32) mmol/L Anion Gap 6.5 (5.0-14.0) mmol/L BUN 13 (7-18) mg/dL Creatinine 1.0 (0.6-1.0) mg/dL Est Cr Clr Drug Dosing TNP Estimated GFR (MDRD) 55 L (>60) Glucose 86 (74-106) mg/dL Calcium 8.8 (8.5-10.1) mg/dL Total Bilirubin 0.4 (0.2-1.0) mg/dL AST 16 (15-37) U/L ALT 26 (12-78) U/L Alkaline Phosphatase 64 (46-116) U/L Total Protein 7.0 (6.4-8.2) g/dL Albumin 3.4 (3.4-5.0) g/dL Globulin 3.6 H (2.3-3.5) g/dL Albumin/Globulin Ratio 0.9 L (1.2-2.2) Med Orders - Current: Current Medications Acetaminophen (Tylenol) 650 mg PO Q4H PRN PRN Reason: Pain (Mild 1-3)/fever Last Admin: 01/19/19 22:48 Dose: 650 mg Albuterol (Proventil Neb Soln) 2.5 mg NEB Q4H PRN PRN Reason: Shortness Of Breath/wheezing Last Admin: 01/20/19 00:44 Dose: 2.5 mg Albuterol/Ipratropium (Duoneb 3.0-0.5 Mg/3 Ml) 3 ml NEB QIDRT [facility] Last Admin: 01/20/19 10:35 Dose: 3 ml Citalopram Hydrobromide (Celexa) 20 mg PO DAILY [facility] Last Admin: 01/20/19 09:24 Dose: 20 mg Enoxaparin Sodium (Lovenox) 40 mg SUBCUT DAILY [facility] Last Admin: 01/20/19 08:56 Dose: 40 mg Omeprazole [Prilosec (] 20 MgPtom) 20 mg PO BEDTIME [facility] Last Admin: 01/19/19 22:48 Dose: 20 mg Ondansetron HCl (Zofran) 4 mg IV Q4H PRN PRN Reason: Nausea/Vomiting Oxycodone HCl (Oxycodone) 5 mg PO Q4H PRN PRN Reason: Pain (moderate 4-6) Aspirin 81 Mg Ec (Tabs*Pt Own Med*) 0 each PO BEDTIME [facility] Last Admin: 01/19/19 21:39 Dose: 1 each Atorvastatin 20 Mg (Tab* Pt Own Med*) 0 each PO BEDTIME [facility] Last Admin: 01/19/19 21:36 Dose: 1 each Fleccainide 100 Mg (Tabs *Pt Own Med*) 0 each PO BID [facility] Last Admin: 01/20/19 08:55 Dose: 1 each Metoprolol Tartrate 25 Mg Tab*Pt Own Med * 0 each PO BID [place] Last Admin: 01/20/19 08:53 Dose: 1 each Temazepam 7.5 Mg (Caps: *Pt Own Med*) 0 each PO BEDTIME [facility] Last Admin: 01/19/19 21:38 Dose: 1 each Polyethylene Glycol (Miralax) 17 gm PO DAILY PRN PRN Reason: Constipation Sodium Chloride (Saline Flush) 10 ml FLUSH ASDIRECTED PRN PRN Reason: Keep Vein Open - Exam Quality Assessment: Reports: Supplemental Oxygen, DVT Prophylaxis General: Reports: Alert, Oriented, Cooperative, No Acute Distress Lungs: Reports: Clear to Auscultation, Normal Respiratory Effort, Decreased Breath Sounds. Denies: Rales, Rhonchi, Rub, Wheezing Cardiovascular: Reports: Regular Rate, Regular Rhythm, No Murmurs GI/Abdominal Exam: Soft, Non-Tender, No Organomegaly, No Distention Extremities: Non-Tender, No Pedal Edema
== END 2019-01-20 13:18 | disposition home or self-care (01) ==
LOC: JP.MS 17:13
PROVIDERS: ADMIT Hospitalist; ATTEND Hospitalist
DX: T17.920A Food in respiratory tract, part unspecified causing asphyxiation, initial encounter (principal); I48.91 Unspecified atrial fibrillation; I10 Essential (primary) hypertension; E78.00 Pure hypercholesterolemia, unspecified; J44.9 Chronic obstructive pulmonary disease, unspecified; J98.11 Atelectasis; R91.1 Solitary pulmonary nodule; Z91.018 Allergy to other foods; Z91.040 Latex allergy status; Z87.891 Personal history of nicotine dependence; Z79.82 Long term (current) use of aspirin; Z79.899 Other long term (current) drug therapy; R06.02 Shortness of breath; R09.02 Hypoxemia; R07.89 Other chest pain
CPT/HCPCS: 36415; 71275; 80053; 82565; 85025; 94640; 94762; 96372; A9270-GY; G0378; G0379; J1650; J7030; J7620-GY; Q9967

== ENCOUNTER 2021-05-21 07:27 | Inpatient (IN) | payer MEDICARE, MEDICAID ==
[2021-05-21] MEDS ORDERED: fentaNYL 250 MCG/5 ML SDV ONE ×2 (07:48→10:46)
[2021-05-21] MEDS ORDERED: Neostigmine Methylsulfate 1 MG/ML 5 ML Syringe ONE (07:49)
[2021-05-21] MEDS ORDERED: Glycopyrrolate 0.2 MG/ML 5 ML MDV ONE (07:49)
[2021-05-21] MEDS ORDERED: Dexamethasone 4 MG/ML SDV ONE (07:49)
[2021-05-21] MEDS ORDERED: Propofol 200 MG/20 ML SDV ONE (07:49)
[2021-05-21] MEDS ORDERED: Ondansetron 4 MG/2 ML SDV ONE (07:49)
[2021-05-21] MEDS ORDERED: Rocuronium 50 MG/5 ML Vial ONE (07:49)
[2021-05-21] MEDS ORDERED: HYDROmorphone/Normal Saline 6 MG/30 ML PCA Vial IV PRN (08:00)
[2021-05-21] MEDS ORDERED: Naloxone 0.4 MG/ML SDV IV PRN (08:00)
[2021-05-21] MEDS: Dextrose 5%-Lactated Ringers 1,000 ML IV SCH ×2 (08:40→23:11)
[2021-05-21] MEDS ORDERED: Acetaminophen 500 MG Tab PO ONE (09:00)
[2021-05-21] MEDS ORDERED: Albuterol/Ipratropium 3.0-0.5 MG/3 ML Neb Soln NEB ONE (09:30)
[2021-05-21] MEDS ORDERED: ceFAZolin 2 GM in Premix Bag 1 BAG IV ONE (09:45)
[2021-05-21] MEDS ORDERED: ceFAZolin 2 GM in Sodium Chloride 0.9% 100 ML IV ONE (09:45)
[2021-05-21] MEDS ORDERED: Isosulfan Blue 5 ML SDV ONE (09:53)
[2021-05-21] MEDS ORDERED: Lactated Ringers 1,000 ML ONE (12:01)
[2021-05-21] MEDS ORDERED: Ondansetron 4 MG/2 ML SDV IVPUSH PRN (14:28)
[2021-05-21] MEDS ORDERED: hydrOXYzine HCL 100 MG/2 ML SDV IM PRN (14:28)
[2021-05-21] MEDS ORDERED: Albuterol 8 GM Inhaler INH PRN (14:36)
[2021-05-21] MEDS ORDERED: RESTORIL 7.5 MG PO PRN (15:19)
[2021-05-21] MEDS: atorvaSTATin 20 MG Tab PO SCH (21:11)
[2021-05-21] MEDS: Flecainide 50 MG Tab PO SCH (21:11)
[2021-05-21] MEDS: Metoprolol Tartrate 25 MG Tab PO SCH (21:15)
[2021-05-22] MEDS ORDERED: HYDROmorphone 2 MG Tab PO PRN (07:13)
[2021-05-22] MEDS ORDERED: Dextrose 5%-Lactated Ringers 1,000 ML IV SCH (07:15)
[2021-05-22] MEDS: Pantoprazole 40 MG Tab.CR PO SCH (07:22)
[2021-05-22] MEDS ORDERED: Acetaminophen 160 MG Tab,Disintegrating PO PRN (07:39)
[2021-05-22] MEDS: Apixaban 5 MG Tab PO SCH ×2 (09:05→20:28)
[2021-05-22] MEDS: Citalopram 20 MG Tab PO SCH (09:05)
[2021-05-22] MEDS: Flecainide 50 MG Tab PO SCH ×2 (09:07→20:28)
[2021-05-22] MEDS: Albuterol 8 GM Inhaler INH SCH (09:08)
[2021-05-22] MEDS: Tiotropium BR/Olodaterol HCL 4 GM Inhalation Spray 2.5mcg/1 dose; 10 doses INH SCH (09:09)
[2021-05-22] MEDS ORDERED: Acetaminophen 325 MG Tab PO PRN (09:55)
[2021-05-22] MEDS: Metoprolol Tartrate 25 MG Tab PO SCH ×2 (11:50→20:29)
[2021-05-22] MEDS: atorvaSTATin 20 MG Tab PO SCH (20:28)
[2021-05-23] MEDS ORDERED: Ondansetron 4 MG Tab.DIS PO PRN (07:16)
[2021-05-23] MEDS: Apixaban 5 MG Tab PO SCH (08:18)
[2021-05-23] MEDS: Metoprolol Tartrate 25 MG Tab PO SCH (08:18)
[2021-05-23] MEDS: Pantoprazole 40 MG Tab.CR PO SCH (08:18)
[2021-05-23] MEDS: Citalopram 20 MG Tab PO SCH (08:18)
[2021-05-23] MEDS: Flecainide 50 MG Tab PO SCH (08:19)
[2021-05-23] MEDS: Tiotropium BR/Olodaterol HCL 4 GM Inhalation Spray 2.5mcg/1 dose; 10 doses INH SCH (08:20)
[2021-05-23] MEDS: Albuterol 8 GM Inhaler INH SCH (08:20)
[2021-05-23 08:21] VITALS: BP 113/44; PULSE 73
== END 2021-05-23 12:29 | disposition home health service (06) | DRG 581 ==
LOC: JP.SDS 07:27 → EDSTATUS 12:00 → JP.MS 12:30
PROVIDERS: ADMIT Surgery; ATTEND Surgery
PROC: 0HTT0ZZ Resection of Right Breast, Open Approach (ICD-10-PCS; principal; 2021-05-21)
PROC: 07B50ZX Excision of Right Axillary Lymphatic, Open Approach, Diagnostic (ICD-10-PCS; 2021-05-21)
PROC: C71LYZZ Planar Nuclear Medicine Imaging of Upper Chest Lymphatics using Other Radionuclide (ICD-10-PCS; 2021-05-21)
DX: C50.911 Malignant neoplasm of unspecified site of right female breast (principal); I10 Essential (primary) hypertension; I48.0 Paroxysmal atrial fibrillation; J44.9 Chronic obstructive pulmonary disease, unspecified; Z79.899 Other long term (current) drug therapy
CPT/HCPCS: 36415; 86300; 94640; A9270-GY; J0690; J1100; J1170; J2405; J2704; J2710; J3010; J3490; J7120; J7121; J7620-GY; Q9968

== ENCOUNTER 2021-07-03 07:19 | Day surgery (SDC) | payer MEDICARE, MEDICAID ==
[~2021-07-03 07:19] MED LIST: Bupivacaine 0.5% 50 ML MDV ONE; Lidocaine 1% with EPINEPHrine 1:100,000 50 ML MDV ONE; Midazolam 1 MG/ML 2 ML SDV ONE; Propofol 200 MG/20 ML SDV ONE; fentaNYL 100 MCG/2 ML SDV ONE
[2021-07-03] MEDS ORDERED: Acetaminophen 500 MG Tab PO ONE (07:30)
[2021-07-03] MEDS ORDERED: Clindamycin Phosphate 900 MG in Sodium Chloride 0.9% 100 ML IV ONE (08:30)
[2021-07-03] MEDS ORDERED: Dextrose 5%-Lactated Ringers 1,000 ML IV SCH (08:30)
[2021-07-03] MEDS ORDERED: Albuterol/Ipratropium 3.0-0.5 MG/3 ML Neb Soln NEB ONE (08:30)
[2021-07-03] MEDS ORDERED: Metoprolol Tartrate 25 MG Tab PO ONE (08:45)
[2021-07-03 11:54] VITALS: BP 98/49; PULSE 66
== END 2021-07-03 12:05 | disposition home or self-care (01) ==
LOC: JP.SDS 07:19
PROVIDERS: ATTEND Surgery
DX: C50.911 Malignant neoplasm of unspecified site of right female breast (principal); J44.9 Chronic obstructive pulmonary disease, unspecified; I48.91 Unspecified atrial fibrillation
CPT/HCPCS: 94640; A9270-GY; C1788; J1642; J2020; J2250; J2704; J3010; J3490; J7121; J7620

== ENCOUNTER 2022-01-23 10:28 | Emergency (ER) | payer MEDICAID, MEDICARE ==
[2022-01-23 10:44] VITALS: BP 97/38; PULSE 57
== END 2022-01-23 12:25 | disposition home or self-care (01) ==
LOC: JP.ED 10:28
DX: R51.9 Headache, unspecified (principal); J44.9 Chronic obstructive pulmonary disease, unspecified; Z91.040 Latex allergy status; Z79.899 Other long term (current) drug therapy; Z79.01 Long term (current) use of anticoagulants; Z90.710 Acquired absence of both cervix and uterus
CPT/HCPCS: 70450; 70450-26; 99284

== ENCOUNTER 2022-02-17 00:21 | Emergency (ER) | payer MEDICARE ==
[2022-02-17 00:30] VITALS: BP 121/59; PULSE 93
[2022-02-17 00:56] LABS: ESTIMATED GFR 36 mL/min (>60)
[2022-02-17 01:25] LABS: CORONAVIRUS COVID-19 NAA NEGATIVE (NEGATIVE)
== END 2022-02-17 08:17 | disposition home or self-care (01) ==
LOC: JP.ED 00:21
DX: J21.0 Acute bronchiolitis due to respiratory syncytial virus (principal); J44.9 Chronic obstructive pulmonary disease, unspecified; N30.01 Acute cystitis with hematuria; C50.911 Malignant neoplasm of unspecified site of right female breast; I48.91 Unspecified atrial fibrillation; I10 Essential (primary) hypertension; E78.00 Pure hypercholesterolemia, unspecified; K21.9 Gastro-esophageal reflux disease without esophagitis; M19.90 Unspecified osteoarthritis, unspecified site; Z17.0 Estrogen receptor positive status [ER+]; Z91.040 Latex allergy status; Z79.01 Long term (current) use of anticoagulants; Z79.899 Other long term (current) drug therapy; Z20.822 Contact with and (suspected) exposure to COVID-19
CPT/HCPCS: 0241U; 36415; 71045; 80053; 81001; 85025; 86140; 87086; 87088; 87186; 99285

== ENCOUNTER 2022-12-22 13:02 | Emergency (ER) | payer MEDICARE ==
[2022-12-22 13:53] VITALS: BP 112/47; PULSE 68
== END 2022-12-22 15:00 | disposition home or self-care (01) ==
LOC: JP.ED 13:02
DX: Z20.822 Contact with and (suspected) exposure to COVID-19 (principal); I48.91 Unspecified atrial fibrillation; E78.00 Pure hypercholesterolemia, unspecified; I10 Essential (primary) hypertension; J44.9 Chronic obstructive pulmonary disease, unspecified; K21.9 Gastro-esophageal reflux disease without esophagitis; Z79.899 Other long term (current) drug therapy; Z91.040 Latex allergy status
CPT/HCPCS: 99282; U0002

== ENCOUNTER 2023-12-10 15:35 | Emergency (ER) | payer MEDICARE, MEDICAID ==
[2023-12-10 17:55] VITALS: BP 155/67; PULSE 55
== END 2023-12-10 18:55 | disposition home or self-care (01) ==
LOC: JP.ED 15:35
DX: S32.019A Unspecified fracture of first lumbar vertebra, initial encounter for closed fracture (principal); S32.029A Unspecified fracture of second lumbar vertebra, initial encounter for closed fracture; I48.91 Unspecified atrial fibrillation; E78.00 Pure hypercholesterolemia, unspecified; I10 Essential (primary) hypertension; J44.9 Chronic obstructive pulmonary disease, unspecified; K21.9 Gastro-esophageal reflux disease without esophagitis; Z79.01 Long term (current) use of anticoagulants; Z79.899 Other long term (current) drug therapy; Z91.040 Latex allergy status; W10.1XXA Fall (on)(from) sidewalk curb, initial encounter
CPT/HCPCS: 70450; 70450-26; 72125; 72125-26; 72131; 72131-26; 76377; 76377-26; 99284

== ENCOUNTER 2024-02-06 14:26 | Emergency (ER) | payer MEDICAID, MEDICARE ==
[2024-02-06 15:25] VITALS: BP 90/30; PULSE 78
== END 2024-02-06 18:17 | disposition home or self-care (01) ==
LOC: JP.ED 14:26
DX: S80.211A Abrasion, right knee, initial encounter (principal); I48.91 Unspecified atrial fibrillation; E78.00 Pure hypercholesterolemia, unspecified; I10 Essential (primary) hypertension; J44.9 Chronic obstructive pulmonary disease, unspecified; K21.9 Gastro-esophageal reflux disease without esophagitis; Z90.710 Acquired absence of both cervix and uterus; Z79.899 Other long term (current) drug therapy; Z91.040 Latex allergy status; W19.XXXA Unspecified fall, initial encounter
CPT/HCPCS: 71250; 71250-26; 73562-26-RT; 73562-RT; 99283; 99284

== ENCOUNTER 2024-08-03 12:17 | Emergency (ER) | payer MEDICARE ==
[2024-08-03] MEDS: Acetaminophen 325 MG Tab PO ONE (12:53)
[2024-08-03 14:32] VITALS: BP 115/50; PULSE 54
== END 2024-08-03 14:47 | disposition home or self-care (01) ==
LOC: JP.ED 12:17
DX: M53.3 Sacrococcygeal disorders, not elsewhere classified (principal); M54.2 Cervicalgia; M79.644 Pain in right finger(s); I10 Essential (primary) hypertension; I48.91 Unspecified atrial fibrillation; J44.9 Chronic obstructive pulmonary disease, unspecified; K21.9 Gastro-esophageal reflux disease without esophagitis; Z90.710 Acquired absence of both cervix and uterus; Z79.899 Other long term (current) drug therapy; Z79.01 Long term (current) use of anticoagulants; W01.198A Fall on same level from slipping, tripping and stumbling with subsequent striking against other object, initial encounter
CPT/HCPCS: 70450; 72125; 72220; 73140; 76377; 99284; A9270

== ENCOUNTER 2024-10-18 16:03 | Inpatient (IN) | payer MEDICARE ==
[2024-10-18 16:52] LABS: BASOPHILS ABSOLUTE AUTO 0.06 K/uL (0.00-0.10); BASOPHILS PERCENT AUTO 0.6 % (0.1-1.3); EOSINOPHILS ABSOLUTE AUTO 0.19 K/uL (0.00-0.40); EOSINOPHILS PERCENT AUTO 1.8 % (0.0-5.4); IMMATURE GRAN ABSOLUTE AUTO 0.05 K/uL (0.00-0.23); IMMATURE GRAN PERCENT AUTO 0.5 % (0.0-0.7); LYMPHOCYTES ABSOLUTE AUTO 1.80 K/uL (0.8-3.3); LYMPHOCYTES PERCENT AUTO 16.9 % (11.4-47.7); MONOCYTES ABSOLUTE AUTO 0.71 K/uL (0.20-0.90); MONOCYTES PERCENT AUTO 6.6 % (3.3-12.6); NEUTROPHILS ABSOLUTE AUTO 7.87 K/uL (1.0-7.6); NEUTROPHILS PERCENT AUTO 73.6 % (40.0-78.1); PLATELET COUNT,PLT 177 K/uL (130-375); RED BLOOD CELL COUNT 3.68 M/uL (3.77-5.24); WHITE BLOOD CELL COUNT,WBC 10.7 K/uL (3.2-11.0)
[2024-10-18 17:15] LABS: A/G RATIO 1.0 (1.2-2.2); ALANINE AMINOTRANSFERASE,ALT 25 U/L (12-78); ASPARTATE AMNIOTRANSFERASE,AST 17 U/L (15-37); BILIRUBIN TOTAL 0.3 mg/dL (0.2-1.0); BLOOD UREA NITROGEN,BUN 30 mg/dL (7-18); CARBON DIOXIDE,CO2 29 mmol/L (21-32); CHLORIDE,CL 106 mmol/L (100-108); CREATININE 1.4 mg/dL (0.6-1.0); EST CRCL DRUG DOSING (CG) 33.41 mL/min; ESTIMATED GFR 39 mL/min (>60); GLUCOSE RANDOM 118 mg/dL (74-106); POTASSIUM,K 4.2 mmol/L (3.6-5.2); PROTEIN TOTAL,TP 6.9 g/dL (6.4-8.2); SODIUM,NA 142 mmol/L (140-148); TROPONIN I HIGH SENSITIVITY 4.5 pg/mL (<=60.3)
[2024-10-18 17:23] LABS: INR 1.0
[2024-10-18] MEDS ORDERED: Naloxone 0.4 MG/ML SDV IVPUSH PRN (18:23)
[2024-10-18] MEDS ORDERED: Albuterol 0.083% 2.5 MG/3 ML Neb Soln NEB PRN (21:06)
[2024-10-18] MEDS ORDERED: Ondansetron 4 MG Tab.DIS PO PRN (21:06)
[2024-10-18] MEDS ORDERED: Magnesium Hydroxide 400 MG/5 ML Susp 30 ML Cup PO PRN (21:06)
[2024-10-18] MEDS ORDERED: Ondansetron 4 MG/2 ML SDV IV PRN (21:06)
[2024-10-19 05:54] LABS: PLATELET COUNT,PLT 161.0 K/uL (130-375); RED BLOOD CELL COUNT 3.42 M/uL (3.77-5.24); WHITE BLOOD CELL COUNT,WBC 15.2 K/uL (3.2-11.0)
[2024-10-19 06:10] LABS: BLOOD UREA NITROGEN,BUN 34.0 mg/dL (7-18); CARBON DIOXIDE,CO2 31.0 mmol/L (21-32); CHLORIDE,CL 105.0 mmol/L (100-108); CREATININE 1.6 mg/dL (0.6-1.0); EST CRCL DRUG DOSING (CG) 29.23 mL/min; ESTIMATED GFR 33.0 mL/min (>60); GLUCOSE RANDOM 125.0 mg/dL (74-106); POTASSIUM,K 5.2 mmol/L (3.6-5.2); SODIUM,NA 140.0 mmol/L (140-148)
[2024-10-19] MEDS: Acetaminophen/HYDROcodone 325-5 MG Tab PO PRN (07:09)
[2024-10-19] MEDS ORDERED: Sodium Chloride 0.9% 10 ML Syringe IV PRN (13:54)
[2024-10-20] MEDS ORDERED: Dexamethasone 4 MG/ML SDV ONE (10:39)
[2024-10-20] MEDS ORDERED: Glycopyrrolate 0.2 MG/ML 5 ML MDV ONE (10:39)
[2024-10-20] MEDS ORDERED: Ondansetron 4 MG/2 ML SDV ONE (10:39)
[2024-10-20] MEDS ORDERED: Propofol 200 MG/20 ML SDV ONE ×2 (10:39→10:48)
[2024-10-20] MEDS ORDERED: Succinylcholine 200 MG/10 ML MDV ONE (10:39)
[2024-10-20] MEDS ORDERED: fentaNYL 250 MCG/5 ML SDV ONE (10:40)
[2024-10-20] MEDS ORDERED: Lactated Ringers 1,000 ML ONE (14:50)
[2024-10-21 05:55] LABS: PLATELET COUNT,PLT 150.0 K/uL (130-375); RED BLOOD CELL COUNT 2.43 M/uL (3.77-5.24); WHITE BLOOD CELL COUNT,WBC 18.3 K/uL (3.2-11.0)
[2024-10-21 06:14] LABS: BLOOD UREA NITROGEN,BUN 32.0 mg/dL (7-18); CARBON DIOXIDE,CO2 32.0 mmol/L (21-32); CHLORIDE,CL 101.0 mmol/L (100-108); CREATININE 1.5 mg/dL (0.6-1.0); EST CRCL DRUG DOSING (CG) 31.18 mL/min; ESTIMATED GFR 35.0 mL/min (>60); GLUCOSE RANDOM 146.0 mg/dL (74-106); POTASSIUM,K 4.8 mmol/L (3.6-5.2); SODIUM,NA 137.0 mmol/L (140-148)
[2024-10-21] MEDS: Magnesium Sulfate 2 GM/50 mL 2 GM in Premix Bag 1 BAG IV SCH (08:28)
[2024-10-21] MEDS: Sennosides/Docusate Sodium 50-8.6 MG Tab PO PRN (08:33)
[2024-10-21 10:49] LABS: APPEARANCE,URINE CLEAR (CLEAR); GLUCOSE,URINE NEGATIVE (NEGATIVE); OCCULT BLOOD,URINE TRACE-INTACT (NEGATIVE)
[2024-10-21 10:59] LABS: SQUAMOUS EPITHELIAL CELLS,UR RARE /HPF; UROTHELIAL CELLS,URINE NOT SEEN /HPF
[2024-10-22 06:03] LABS: PLATELET COUNT,PLT 152.0 K/uL (130-375); RED BLOOD CELL COUNT 2.58 M/uL (3.77-5.24); WHITE BLOOD CELL COUNT,WBC 14.6 K/uL (3.2-11.0)
[2024-10-25 05:45] VITALS: BP 108/42; PULSE 66
== END 2024-10-25 10:09 | DRG 493 ==
LOC: JP.ED 16:03 → JP.MS 20:17
PROVIDERS: ADMIT Registered Nurse; ATTEND Internal Medicine
PROC: 0PSG04Z Reposition Left Humeral Shaft with Internal Fixation Device, Open Approach (ICD-10-PCS; principal; 2024-10-18)
DX: S42.402A Unspecified fracture of lower end of left humerus, initial encounter for closed fracture (principal); S42.352A Displaced comminuted fracture of shaft of humerus, left arm, initial encounter for closed fracture; S00.31XA Abrasion of nose, initial encounter; D62 Acute posthemorrhagic anemia; S02.2XXB Fracture of nasal bones, initial encounter for open fracture; J96.11 Chronic respiratory failure with hypoxia; N30.00 Acute cystitis without hematuria; Z66 Do not resuscitate; D72.829 Elevated white blood cell count, unspecified; M19.90 Unspecified osteoarthritis, unspecified site; W18.30XA Fall on same level, unspecified, initial encounter; I48.91 Unspecified atrial fibrillation; E53.8 Deficiency of other specified B group vitamins; E78.00 Pure hypercholesterolemia, unspecified; G89.29 Other chronic pain; M54.9 Dorsalgia, unspecified; W10.1XXA Fall (on)(from) sidewalk curb, initial encounter; H54.7 Unspecified visual loss; I10 Essential (primary) hypertension; J44.9 Chronic obstructive pulmonary disease, unspecified; K21.9 Gastro-esophageal reflux disease without esophagitis; F32.9 Major depressive disorder, single episode, unspecified; Z85.3 Personal history of malignant neoplasm of breast; Z79.01 Long term (current) use of anticoagulants; Z91.040 Latex allergy status; Z79.899 Other long term (current) drug therapy; Z98.49 Cataract extraction status, unspecified eye; Z86.73 Personal history of transient ischemic attack (TIA), and cerebral infarction without residual deficits; Z98.890 Other specified postprocedural states; Z90.710 Acquired absence of both cervix and uterus; Z90.10 Acquired absence of unspecified breast and nipple; Z98.51 Tubal ligation status
CPT/HCPCS: 36415; 70450; 70486; 72125; 73070 ×2; 76377; 80053; 83735; 84484; 85025; 85610; 93005; 93010; 96374; 99285 ×2; A9270; 36430; 71046; 71046-26; 76000; 80048; 81001; 85018; 85027; 86850; 86900; 86901; 86920; 86922; 87086; 97161-GP; 97162-GP; 97530-GP; 99222; 99232; 99238; C1713; C1776; J0330; J0690; J1100; J1171; J1596; J2405; J2704; J2710; J3010; J3475; J3490; J7030; J7120; P9016

== ENCOUNTER 2025-01-01 10:23 | Emergency (ER) | payer MEDICARE, OTHER ==
[2025-01-01 10:37] VITALS: BP 132/62; PULSE 77
== END 2025-01-01 11:09 | disposition home or self-care (01) ==
LOC: JP.ED 10:23
DX: S42.302P Unspecified fracture of shaft of humerus, left arm, subsequent encounter for fracture with malunion (principal); I10 Essential (primary) hypertension; E78.00 Pure hypercholesterolemia, unspecified; K21.9 Gastro-esophageal reflux disease without esophagitis; Z90.710 Acquired absence of both cervix and uterus; Z91.040 Latex allergy status; Z79.899 Other long term (current) drug therapy; W26.8XXD Contact with other sharp object(s), not elsewhere classified, subsequent encounter
CPT/HCPCS: 99283